=== PATIENT | male | born 1960 | race Caucasian/White ===

== ENCOUNTER 2020-08-28 22:33 | Emergency (ER) | payer OTHER, SELFPAY ==
[2020-08-28 22:41] VITALS: PULSE 65; RESP 22; O2SAT 90
[2020-08-28 22:45] VITALS: BP 107/69; BP 117/71; PULSE 67; PULSE 68; RESP 16; RESP 19; TEMP 36.3; O2SAT 93; O2SAT 95; BMI 34.1
--- NOTE | 2020-08-28 22:48 | DI.RAD.S_ITS ---
PROCEDURE: XR CHEST 1V INDICATIONS: chest pain TECHNIQUE: One view of the chest was acquired. COMPARISON: [facility], CT, CT HEAD/BRAIN WO CON, 08/29/2020, 1:24. FINDINGS: Surgical changes and devices: None. Lungs and pleura: An incomplete inspiratory result is noted, causing a crowded appearance to the lung markings. No focal infiltrates are seen. No pneumothorax or significant pleural effusions are seen. Minimal interstitial prominence is seen throughout. Mediastinum: Mediastinal contours appear normal. Heart size is normal. Bones and chest wall: No suspicious bony lesions. Age-appropriate bony degenerative changes are seen. Overlying soft tissues appear unremarkable. IMPRESSION: Minimal interstitial prominence is seen throughout, which is most likely artifactual, secondary to the incomplete inspiratory result. If clinically appropriate, a short-term followup chest series (with PA and lateral views) performed in deep inspiration is suggested for further evaluation. Dictated by: Matt Beck M.D. on 08/29/2020 at 8:30 Approved by: Matt Beck M.D. on 08/29/2020 at 8:31
[2020-08-28] MEDS: SODIUM CHLORIDE 0.9% 1,000 ML 1000 ML IV (22:57)
[2020-08-28 22:59] LABS: INR 0.9 (0.9-1.3); Prothrombin Time 10.2 SECONDS (10.1-12.7)
[2020-08-28 23:00] VITALS: BP 108/69; PULSE 63; RESP 16; O2SAT 93
[2020-08-28 23:00] LABS: Add Manual Diff / Slide Review NO; Basophils Absolute Auto 100 /uL (0-100); Basophils Percent Auto 0.8 % (0-2); Eosinophils Absolute Auto 300 /uL (0-450); Eosinophils Percent Auto 1.9 % (2-4); Hematocrit 44.3 % (41-53); Hemoglobin 14.8 g/dL (13.5-17.5); Lymphocytes Absolute Auto 6000 /uL (1100-4500); Lymphocytes Percent Auto 43.8 % (25-40); Mean Corpuscular HGB Conc 33.3 % (30-36); Mean Corpuscular Volume 90.1 fL (80-100); Monocytes Absolute Auto 1400 /uL (0-900); Monocytes Percent Auto 9.9 % (3-14); Neutrophils Absolute Auto 5900 /uL (1500-7000); Neutrophils Percent Auto 43.6 % (50-75); Platelet Count 351 X10^3/uL (150-400); Red Blood Cell Count 4.92 X10^6/uL (4.5-5.9); Red Cell Distribution Width 14.3 % (11.6-14.8); White Blood Cell Count 13.6 X10^3/uL (4.5-11.0)
[2020-08-28 23:02] LABS: PTT Partial Thromboplastin Tim 33 SECONDS (26.4-36.2)
[2020-08-28 23:04] LABS: Alanine Aminotransferase 41 IU/L (<50); Albumin 4.1 g/dL (3.5-5.0); Albumin Globulin Ratio 1.5 (1.0-2.8); Alkaline Phosphatase 80 U/L (38-126); Aspartate Aminotransferase 35 IU/L (17-59); BUN Creatinine Ratio 20.2 (6-22); Bilirubin Total 0.4 mg/dL (0.2-1.3); Blood Urea Nitrogen 18 mg/dL (9-20); Calcium 9.3 mg/dL (8.4-10.2); Carbon Dioxide 23 mmol/L (22-32); Chloride 104 mmol/L (98-107); Creatine Kinase 696 U/L (55-170); Estimated Glomerular Filt Rate > 60.0 mL/min (>60); Globulin 2.7 g/dL (1.7-4.1); Glucose 121 mg/dL (70-100); HEMOLYSIS < 15 (0-50); Lipase 137 U/L (23-300); Potassium 3.2 mmol/L (3.4-5.1); Sodium 137 mmol/L (137-145); Total Protein 6.8 g/dL (6.3-8.2)
--- NOTE | 2020-08-28 23:11 | ED_ITS ---
HPI - Syncope General Chief Complaint: Syncope Stated Complaint: Syncope Time Seen by Provider: 08/28/20 22:40 History of Present Illness HPI narrative: 59-year-old smoker with no other significant medical problems [place] he began feeling somewhat nauseated lightheaded and diaphoretic. Was walking back [place] the [place] and go back to his car when he felt more ?wobbly? and went to sit down and then woke up on the floor. There was urinary incontinence there was no observed seizure activity by bystanders and he was immediately alert upon waking up. Blood alcohol level was 0.07 at the [facility]. He states that he has been feeling well prior to to going to the [employer] that evening he also notes that he rarely ever drinks alcohol. He described no palpitations, no chest pain no dyspnea. He has no neurologic abnormalities or localizing signs or symptoms. He has no fever her [facility] no infectious etiology. Currently he has no nausea, abdominal pain, cough, chest pain. No musculoskeletal pain or bruises from slumping from the chair to the floor. He does not believe he hit his head and he has no neck pain. Related Data Allergies Allergy/AdvReac Type Severity Reaction Status Date / Time No Known Drug Allergies Allergy Verified 08/29/20 00:42 Review of Systems Review of Systems Narrative: Remainder of review of systems including constitutional, ENT, cardiovascular, respiratory, GI, , musculoskeletal, skin, neurologic and psychiatric systems reviewed and are unremarkable except as noted in HPI. Patient History Medical History Smoker (Acute) Exam Narrative Exam Narrative: General: Healthy appearing, in no acute distress. Able to give a complete and coherent history. Well-nourished well-developed HEENT: Moist mucous membranes, normal sclera with reactive pupils, Neck: No JVD, supple Respiratory: Lungs are clear to auscultation, no wheezing no rales no rhonchi. Full and symmetrical air movement Cardiac: Regular rate and rhythm no murmurs no bruits Abdomen: Soft nontender good bowel tones, no flank pain Skin: Warm and dry, no rashes Neurologic: Grossly neurologically intact with no obvious asymmetries or abnormalities Extremities: No trauma, well perfused Psych: Cooperative, appropriate insight and affect Initial Vital Signs Initial Vital Signs: Vital Signs Pulse Rate 65 08/28/20 22:41 Respiratory Rate 22 10/16/20 22:41 Pulse Oximetry 90 L 10/16/20 22:41 Course Orders Ordered: ED Orders 08/28/20 22:20 Complete Blood Count AUTO DIFF Stat Comprehensive Metabolic Panel Stat Lipase Stat Partial Thromboplastin Time Stat Prolactin Stat Prothrombin Time INR Stat Troponin & CK Cardiac Panel Stat 08/28/20 22:48 XR chest 1V Stat EKG-12 Lead Stat 08/29/20 00:40 Trop I [Troponin I] Stat 08/29/20 01:16 CT head/brain wo con Stat Discontinued Medications Sodium Chloride (Normal Saline 0.9%) 1,000 mls @ 1,000 mls/hr IV BOLUS ONE Stop: 08/28/20 23:50 Last Infusion: 08/29/20 00:18 Dose: 0 mls/hr Documented by: Admin: 08/28/20 22:57 Dose: 1,000 mls/hr Documented by: SHARDA Vital Signs Vital signs: Vital Signs - 8 hr 08/28/20 22:41 08/28/20 22:45 08/28/20 23:00 Temperature 97.4 F L Pulse Rate 65 67 63 Respiratory Rate 22 19 16 Blood Pressure 117/71 108/69 Pulse Oximetry 90 L 93 93 08/28/20 23:30 08/29/20 00:00 08/29/20 00:30 Temperature Pulse Rate 59 L 58 L 57 L Respiratory Rate 17 19 17 Blood Pressure 114/65 119/65 119/67 Pulse Oximetry 93 96 93 MDM - Syncope Medical Records Attestation: I reviewed the patient's medical records. Lab Data Attestation: I reviewed the patient's lab results. Lab results narrative: Repeat troponin is negative Result diagrams: 08/28/20 22:20 08/28/20 22:20 Labs: Lab Results 08/28/20 08/28/20 08/28/20 Range/Units 22:20 22:20 22:20 WBC 13.6 H (4.5-11.0) X10^3/uL RBC 4.92 (4.5-5.9) X10^6/uL Hgb 14.8 (13.5-17.5) g/dL Hct 44.3 (41-53) % MCV 90.1 (80-100) fL MCH 30.0 (26-34) PG MCHC 33.3 (30-36) % RDW 14.3 (11.6-14.8) % Plt Count 351 (150-400) X10^3/uL Neut % (Auto) 43.6 L (50-75) % Lymph % (Auto) 43.8 H (25-40) % [place] % (Auto) 9.9 (3-14) % Eos % (Auto) 1.9 L (2-4) % Baso % (Auto) 0.8 (0-2) % Neut # (Auto) 5900 (1953-2401) /uL Lymph # (Auto) 6000 H (8839-5184) /uL [place] # (Auto) 1400 H (0-900) /uL Eos # (Auto) 300 (0-450) /uL Baso # (Auto) 100 (0-100) /uL PT 10.2 (10.1-12.7) SECONDS INR 0.9 (0.9-1.3) APTT 33 (26.4-36.2) SECONDS Sodium 137 (137-145) mmol/L Potassium 3.2 L (3.4-5.1) mmol/L Chloride 104 (98-107) mmol/L Carbon Dioxide 23 (22-32) mmol/L BUN 18 (9-20) mg/dL Creatinine 0.89 (0.66-1.25) mg/dL Estimated GFR > 60.0 (>60) mL/min BUN/Creatinine Ratio 20.2 (6-22) Glucose 121 H (70-100) mg/dL Calcium 9.3 (8.4-10.2) mg/dL Total Bilirubin 0.4 (0.2-1.3) mg/dL AST 35 (17-59) IU/L ALT 41 (<50) IU/L Alkaline Phosphatase 80 (38-126) U/L Total Creatine Kinase 696 H (55-170) U/L CK-MB (CK-2) 9.32 H (<2.37) ng/mL CK-MB (CK-2) Rel Index 1.3 L (1.5-5.0) % Troponin I < 0.012 (0.01-0.034) ng/mL Total Protein 6.8 (6.3-8.2) g/dL Albumin 4.1 (3.5-5.0) g/dL Globulin 2.7 (1.7-4.1) g/dL Albumin/Globulin Ratio 1.5 (1.0-2.8) Lipase 137 (23-300) U/L Prolactin (3.7-17.9) ng/mL 08/28/20 08/29/20 Range/Units 22:20 00:40 WBC (4.5-11.0) X10^3/uL RBC (4.5-5.9) X10^6/uL Hgb (13.5-17.5) g/dL Hct (41-53) % MCV (80-100) fL MCH (26-34) PG MCHC (30-36) % RDW (11.6-14.8) % Plt Count (150-400) X10^3/uL Neut % (Auto) (50-75) % Lymph % (Auto) (25-40) % [place] % (Auto) (3-14) % Eos % (Auto) (2-4) % Baso % (Auto) (0-2) % Neut # (Auto) (3977-5962) /uL Lymph # (Auto) (4930-5838) /uL [place] # (Auto) (0-900) /uL Eos # (Auto) (0-450) /uL Baso # (Auto) (0-100) /uL PT (10.1-12.7) SECONDS INR (0.9-1.3) APTT (26.4-36.2) SECONDS Sodium (137-145) mmol/L Potassium (3.4-5.1) mmol/L Chloride (98-107) mmol/L Carbon Dioxide (22-32) mmol/L BUN (9-20) mg/dL Creatinine (0.66-1.25) mg/dL Estimated GFR (>60) mL/min BUN/Creatinine Ratio (6-22) Glucose (70-100) mg/dL Calcium (8.4-10.2) mg/dL Total Bilirubin (0.2-1.3) mg/dL AST (17-59) IU/L ALT (<50) IU/L Alkaline Phosphatase (38-126) U/L Total Creatine Kinase (55-170) U/L CK-MB (CK-2) (<2.37) ng/mL CK-MB (CK-2) Rel Index (1.5-5.0) % Troponin I 0.012 (0.01-0.034) ng/mL Total Protein (6.3-8.2) g/dL Albumin (3.5-5.0) g/dL Globulin (1.7-4.1) g/dL Albumin/Globulin Ratio (1.0-2.8) Lipase (23-300) U/L Prolactin 71.4 H (3.7-17.9) ng/mL ECG Data Attestation: I personally reviewed and interpreted this ECG as follows: Interpretation: No prior EKGs for comparison Sinus rhythm or rate of 69 First-degree AV block, significant right axis deviation Right bundle branch block and a left posterior fascicular block MDM Narrative Medical decision making narrative: 59-year-old gentleman with a syncopal episode this evening no evidence of acute coronary syndrome or arrhythmia. Prolactin level is elevated bili possibility of seizure is entertained. With that possibility at the age of 59 and no significant past medical history a CT scan of his head was obtained to make sure there is no evidence of masses, years or intracranial hemorrhage. He will need outpatient follow-up for routine care as well as possibility of single seizure. He does have a bifascicular block and further risk stratifi cation for cardiac studies would also be appropriate and in outpatient setting. Discharge Plan Departure Patient Disposition: Home Clinical Impression: Syncope Qualifiers: Syncope type: unspecified Qualified Code(s): R55 - Syncope and collapse Instructions: DI for Syncope in Adults (Fainting) Activity Restrictions/Additional Instructions: Thank you for coming in today Your blood work was reassuring. There is no evidence of heart attack or heart attack like syndrome today. I also see no evidence of an acute heart rhythm difficulty that might have caused this episode. You had 1 test, procalcitonin, that was elevated. It can sometimes be associated with seizures. Drinking alcohol can make it easier to have a sei zure. It is also possible that you were mildly dehydrated very mildly intoxicated and that was enough to cause your syncopal episode. There are no life-threatening diagnoses identified in the emergency room today. You do need some follow-up. You did have abnormalities on your EKG and making sure that you are not at risk for a heart attack in the future would be very appropriate. It would also be very appropriate to consider seeing a neurologist regarding this episode. You can call our health Resource line at [phone] for help in finding a primary care physician in the area. I hope you are able to get a good night's sleep and feel better in the morning. Until you have more this sorted out, I would recommend you continue to avoid alcohol.
[2020-08-28 23:15] LABS: Troponin I < 0.012 ng/mL (0.01-0.034)
[2020-08-28 23:19] LABS: CKMB % Relative Index 1.3 % (1.5-5.0); Creatine Kinase MB 9.32 ng/mL (<2.37)
[2020-08-28 23:21] LABS: Prolactin 71.4 ng/mL (3.7-17.9)
--- NOTE | 2020-08-28 23:21 | PC.NURSE ---
Patient desat down to 88% while sleeping. Awoke patient and O2 returned to 94%. Added 2L O2 NC and patient remains at 94% while resting.
[2020-08-28 23:30] VITALS: BP 114/65; PULSE 59; RESP 17; O2SAT 93
[2020-08-29] VITALS (8 sets, daily range): BP systolic 112–139; BP diastolic 61–67; PULSE 55–65; RESP 13–19; O2SAT 91–96
--- NOTE | 2020-08-29 01:16 | DI.CT.S_ITS ---
PROCEDURE: CT HEAD/BRAIN WO CON INDICATIONS: 1st seizure, unprovoked TECHNIQUE: Noncontrast 4.5 mm thick angled axial sections acquired from the foramen magnum to the vertex, with coronal and sagittal reformats. For radiation dose reduction, the following was used: automated exposure control, adjustment of mA and/or kV according to patient size. COMPARISON: [facility], CR, XR CHEST 1V, 08/28/2020, 22:52. FINDINGS: Image quality: Excellent. CSF spaces: Basal cisterns are patent. No extra-axial fluid collections. Ventricles are normal in size and shape. Brain: No midline shift. No intracranial masses or hemorrhage. Barraza-white matter interface is normal. Skull and face: Calvarium and visualized facial bones are intact, without suspicious lesions. Sinuses: Visualized sinuses and mastoids are clear. IMPRESSION: Unremarkable intracranial study for age, without an imaging explanation found for the patient's presenting history of seizure. Note: No significant discrepancy from the preliminary report. Dictated by: Matt Beck M.D. on 08/29/2020 at 8:18 Approved by: Matt Beck M.D. on 08/29/2020 at 8:19
[2020-08-29 01:17] LABS: Troponin I 0.012 ng/mL (0.01-0.034)
== END 2020-08-29 02:57 | disposition home or self-care (01) ==
PROVIDERS: Emergency Provider Emergency Medicine
DX: R55 Syncope and collapse (principal); R79.89 Other specified abnormal findings of blood chemistry; R56.9 Unspecified convulsions; R07.9 Chest pain, unspecified
CPT/HCPCS: 36415; 70450; 71045; 80053; 82550; 82553; 83690; 84146; 84484; 85025; 85610; 85730; 96360; 99284; 99285